=== PATIENT | male | born 1995 ===

== ENCOUNTER 2024-01-17 15:46 | Outpatient (CLI) | payer BC, SELFPAY ==
--- NOTE | ~2024-01-17 | XR_ITS ---
3 VIEWS LUMBAR SPINE Ordering provider: Diego Bobby, [place] History: . Low back pain . Comparison: None. FINDINGS: VERTEBRAL BODIES:Anterolisthesis at the level of L4-L5 with spondylolysis. No visible fracture or francisco bluxation. DISK SPACES: Narrowing of the disc L4-L5. SOFT TISSUES: Normal. IMPRESSION: No acute osseous abnormality lumbar spine. Spondylolisthesis at the level of L4-L5 with spondylolysis. Reviewed, dictated and finalized at location A.
== END 2024-01-17 15:47 | disposition home or self-care (01) ==
PROVIDERS: PCP Chiropractor; Visit Provider Chiropractor
DX: M47.896 Other spondylosis, lumbar region (principal)
CPT/HCPCS: 72110

== ENCOUNTER 2025-01-17 10:27 | Outpatient (CLI) | payer BC, SELFPAY ==
--- NOTE | ~2025-01-17 | XR_ITS ---
EXAMINATION: XR wrist LT min 3V, 01/17/2025 10:34 CDT HISTORY: left wrist pain x 8 weeks after shoveling, no inj , no surg COMPARISON: No comparisons available. Findings: No acute fracture or malalignment. No significant degenerative changes. Soft tissues unremarkable. Impression: No acute fracture or malalignment. Reviewed, dictated and finalized at location A. Impression: No acute fracture or malalignment.
== END 2025-01-17 10:28 | disposition home or self-care (01) ==
LOC: GOSHIMG 10:29
PROVIDERS: PCP Chiropractor; Visit Provider Chiropractor
DX: M25.532 Pain in left wrist (principal)
CPT/HCPCS: 73110